=== PATIENT | male | born 1990 | race Caucasian/White ===

== ENCOUNTER 2017-04-09 11:28 | Emergency (ER) | payer MEDICAID ==
[~2017-04-09] VITALS: Ht 172.7 cm; Wt 82.5 kg
[2017-04-09 14:14] VITALS: BP 130/74
== END 2017-04-09 14:14 | disposition home or self-care (01) ==
LOC: ED 11:28
DX: G44.209 Tension-type headache, unspecified, not intractable (principal)
CPT/HCPCS: J1885; J2765